=== PATIENT | female | born 1950 | race African-American/Black ===

== ENCOUNTER 2017-10-21 22:03 | Emergency (ER) | payer OTHER, MEDICARE ==
[2017-10-21 22:57] LABS: INFLUENZA A PATIENT NEGATIVE (NEGATIVE); INFLUENZA B PATIENT NEGATIVE (NEGATIVE); OBC FLU VALID
== END 2017-10-21 23:10 | disposition home or self-care (01) ==
LOC: ER 23:10
DX: Z71.1 Person with feared health complaint in whom no diagnosis is made (principal); I10 Essential (primary) hypertension; M10.9 Gout, unspecified
CPT/HCPCS: 87804; 87804-59; 99284

== ENCOUNTER 2020-02-19 04:53 | Emergency (ER) | payer OTHER ==
[~2020-02-19] VITALS: Ht 167.6 cm; Wt 139.1 kg
[~2020-02-19 04:53] MED LIST: ALLO100T PO; ASPI-630 PO; HYDR10SY16 PO; HYDR10TA2 PO; LISI10TA2 PO; MECL12.573 PO; METO-247 PO; OXYC1TAB15 PO
[2020-02-19] MEDS ORDERED: INDO50CA15 PO (05:21)
[2020-02-19] MEDS ORDERED: METH4TAB2 PO (05:21)
--- NOTE | 2020-02-19 05:21 | PHYS DOC ---
Past Medical History Past Medical History: Hypertension, Other Additional Past Medical Histor: FLUID RETENTION, GOUT, SCIATICA, VERTIGO Past Surgical History: Hysterectomy, Tubal ligation, Other Additional Past Surgical Histo: carpal tunnel Left in 08/15 and right in May Smoking Status: Former Smoker Alcohol Use: None Drug Use: None General Adult EDM: Chief Complaint: BACK PAIN OR INJURY HPI: HPI: Patient is a 69 year old female who presents with complaint of lower back pain and sciatica. She was seen by her doctor yesterday and was prescribed tramadol and Zanaflex but states that they are just not helping with the pain. Patient indicates that she is not able to take anything with codeine, hydrocodone or oxycodone. Patient denies any urinary discomfort or fever. She states the pain is worsened when she moves or bends over. [] Review of Systems: Review of Systems: Constitutional: Denies fever or chills. [] Respiratory: Denies cough or shortness of breath. [] Cardiovascular: Denies chest pain or edema. [] GI: Denies abdominal pain, nausea, vomiting or diarrhea. [] Musculoskeletal: Complains of lower back pain. [] Integument: Denies rash. [] Neurologic: Denies headache, focal weakness or sensory changes. [] Heart Score: Risk Factors: Risk Factors: DM, Current or recent (<one month) smoker, HTN, HLP, family history of CAD, obesity. Risk Scores: Score 0 - 3: 2.5% MACE over next 6 weeks - Discharge Home Score 4 - 6: 20.3% MACE over next 6 weeks - Admit for Clinical Observation Score 7 - 10: 72.7% MACE over next 6 weeks - Early Invasive Strategies Current Medications: Current Medications Medications (Trade) Dose Ordered Sig/[facility] Start Time Stop Time Status Last Admin Dose Admin Dexamethasone Sodium Phosphate (Decadron) 10 mg 1X ONCE 02/19/20 05:30 02/19/20 05:31 Fentanyl Citrate (Fentanyl 2ml Vial) 50 mcg 1X ONCE 02/19/20 05:30 02/19/20 05:31 Orphenadrine Citrate (Norflex) 60 mg 1X ONCE 02/19/20 05:30 02/19/20 05:31 Allergies: Allergies: Allergies Coded Allergies Type Severity Reaction Last Updated Verified codeine Allergy Intermediate DIZZINESS, NAUSEA 02/19/20 Yes Physical Exam: PE: Constitutional: Well developed, well nourished, no acute distress, non-toxic appearance. [] Cardiovascular: Regular rate and rhythm [] Lungs & Thorax: Bilateral breath sounds clear to auscultation [] Abdomen: Bowel sounds normal, soft, no tenderness. [] Skin: Warm, dry, no erythema, no rash. [] Back: There is tenderness to palpation lumbar paraspinal musculature bilaterally. [] Neurologic: Alert and oriented X 3, no focal deficits noted. [] Current Patient Data: Vital Signs: Vital Signs Date Time Temp Pulse Resp B/P (MAP) Pulse Ox O2 Delivery O2 Flow Rate FiO2 02/19/20 04:55 98.1 94 16 126/68 (87) 96 Room Air 98.1 EKG: EKG: [] Radiology/Procedures: Radiology/Procedures: [] Course & Med Decision Making: Course & Med Decision Making Pertinent Labs and Imaging studies reviewed. (See chart for details) [] Dragon Disclaimer: Dragon Disclaimer: This electronic medical record was generated, in whole or in part, using a voice recognition dictation system. Departure Departure Impression: Primary Impression: Low back pain with sciatica Qualified Codes: M54.40 - Lumbago with sciatica, unspecified side Disposition: HOME, SELF-CARE Condition: STABLE Referrals: DARIEN BOB MD (PCP) Patient Instructions: Back Pain, Adult, Sciatica Scripts Indomethacin (INDOMETHACIN) 50 Mg Capsule 1 CAP PO TID PRN for PAIN for 10 Days, #30 CAP 0 Refills with food Prov: TANYA RUEDA Jr. DO 02/19/20 Methylprednisolone (MEDROL) 4 Mg Tab.ds.pk 1 PKG PO UD, #1 PKG Prov: TANYA RUEDA Jr. DO 02/19/20 TANYA RUEDA Jr. DO February 19, 2020 05:21
[2020-02-19 05:26] VITALS: BP 144/74
[2020-02-19] MEDS ORDERED: DEXAMETHASONE SOD PHOS 20 MG/5 ML VIAL. IM ONE (05:30)
[2020-02-19] MEDS ORDERED: fentaNYL PF VIAL 100 MCG/2 ML VIAL IM ONE (05:30)
[2020-02-19] MEDS ORDERED: ORPHENADRINE CITRATE 60 MG/2 ML VIAL. IM ONE (05:30)
== END 2020-02-19 05:37 | disposition home or self-care (01) ==
LOC: ER 04:53
DX: M54.40 Lumbago with sciatica, unspecified side (principal); I10 Essential (primary) hypertension; Z90.710 Acquired absence of both cervix and uterus; Z98.51 Tubal ligation status; Z98.890 Other specified postprocedural states; Z87.891 Personal history of nicotine dependence
CPT/HCPCS: 96372; 99284; J1100; J2360; J3010